=== PATIENT | female | born 1925 | race Caucasian/White ===

== ENCOUNTER 2016-05-20 08:33 | Emergency (ER) | payer OTHER, MEDICAID ==
[~2016-05-20] VITALS: Ht 152.4 cm; Wt 53.1 kg
[2016-05-20 08:33] VITALS: BP_SYST 206
[~2016-05-20 08:33] MED LIST: LISI40TA4 PO; LOVA10TA55 PO; VERA180T7 PO
--- NOTE | 2016-05-20 08:54 | NUR ---
ER at bedside examining patient.
--- NOTE | 2016-05-20 08:56 | NUR ---
Patient awake in bed, stable condition, alert and oriented x4. States has had upper abdominal pain that extends to ribs and wraps around back since yesterday after picking up her dpg (appx 15lbs). Denies any injury to body, denies fall. No deformities noted, no injuries noted. Patient states pain worsens with inspiration. No respiratory distress noted. No other complaints/injuries per patient or noted. Addendum: 05/20/16 at 0937 by FADUMO dog
--- NOTE | 2016-05-20 08:58 | NUR ---
Dr. Crow at bedside
--- NOTE | 2016-05-20 08:59 | NUR ---
Dr. Crow aware of blood pressure.
--- NOTE | 2016-05-20 09:20 | NUR ---
Blood pressure recheck: 179/117. Dr. Crow aware, placing medication order.
[2016-05-20] MEDS ORDERED: METOPROLOL TARTRATE 5 MG/5 ML VIAL IVP ONE (09:30)
[2016-05-20 09:35] LABS: BASOPHILS % (AUTO) 0.6 % (0.0-2.0); EOSINOPHILS # (AUTO) 0.1 K/uL (0.0-0.4); EOSINOPHILS % (AUTO) 1.6 % (0.0-4.0); HEMATOCRIT 39.2 % (36-48); HEMOGLOBIN 13.1 g/dL (12.0-16.0); LYMPHOCYTES % (AUTO) 16.8 % (20.5-51.5); MEAN CORPUSCULAR HEMOGLOBIN 27 pg (27-31); MEAN CORPUSCULAR HGB CONC 33 % (32-36); MEAN CORPUSCULAR VOLUME 82 fL (79.0-98.0); MONOCYTES # (AUTO) 0.5 K/uL (0.0-1.0); NEUTROPHILS # (AUTO) 4.1 K/uL (1.8-7.7); PLATELET COUNT (AUTO) 274 K/uL (130-430); RED CELL DISTRIBUTION WIDTH 13.7 % (9.0-15.0); WHITE BLOOD COUNT (AUTO) 5.7 K/uL (4.8-10.8)
[2016-05-20 09:42] LABS: ANION GAP 3 (5-15); CALCIUM 8.6 mg/dL (8.4-11.0); CHLORIDE 107 mmol/L (98-107); GLUCOSE 95 mg/dL (70-99); POTASSIUM 3.5 mmol/L (3.5-5.1); SODIUM SERUM 139 mmol/L (136-145); UREA NITROGEN, BLOOD 8 mg/dL (8-21)
[2016-05-20 09:44] LABS: BILIRUBIN,URINE NEGATIVE (NEGATIVE); BLOOD, URINE TRACE (NEGATIVE); CLARITY/URINE CLEAR (CLEAR); COLOR,URINE YELLOW (YELLOW); GLUCOSE,URINE NEGATIVE (NEGATIVE); KETONES,URINE NEGATIVE (NEGATIVE); LEUKOCYTE ESTERASE ,URINE NEGATIVE (NEGATIVE); NITRITE, URINE NEGATIVE (NEGATIVE); PH,URINE 8.5 (5.0-8.0); PROTEIN URINE TRACE (NEGATIVE); UROBILINOGEN,URINE 0.2 (0.2-1.0)
[2016-05-20 09:44] LABS: INR 0.9 (0.8-1.2); PROTHROMBIN TIME 10.3 SECS (9.5-12.5)
[2016-05-20 09:46] LABS: ALANINE AMINOTRANSFERASE 22 U/L (12-78); ALBUMIN 3.5 g/dL (3.4-4.8); ASPARTATE AMINOTRANSFERASE 18 U/L (10-37); CHOLESTEROL 178 mg/dL (<200); HDL CHOLESTEROL 86 mg/dL (>55); LDL CHOLESTEROL 79 mg/dL (<100); LIPASE 140 U/L (73-393); TOTAL BILIRUBIN 0.6 mg/dL (0.0-1.0); TRIGLYCERIDES 52 mg/dL (30-150)
--- NOTE | 2016-05-20 10:00 | NUR ---
Dr. Crow aware that blood pressure remains elevated, no orders received.
[2016-05-20 10:08] LABS: BACTERIA,URINE RARE /HPF (None Seen); MUCUS,URINE 1+ /LPF (None Seen); RBC,URINE 0-3 /HPF (0-3); WBC,URINE 0-3 /HPF (0-3)
--- NOTE | 2016-05-20 11:00 | NUR ---
Dr. Crow stated does not want to administer any blood pressure medication at this time due to chronic history of hypertension and chance of blood pressure dropping too low. Monitoring closely.
--- NOTE | 2016-05-20 11:04 | NUR ---
Patient in stable condition, no distress noted. Denies headache. Addendum: 05/20/16 at 1104 by FADUMO denies dizziness
--- NOTE | 2016-05-20 12:00 | NUR ---
Patient ambulatory from room to restroom with steady gait without assist but patient states she is still having pain when walking. Dr russell aware.
--- NOTE | 2016-05-20 12:15 | NUR ---
Patient to radiology via [facility]
--- NOTE | 2016-05-20 12:35 | NUR ---
called dietary for 2G NA meal tray, Dr russell aware
--- NOTE | 2016-05-20 12:38 | NUR ---
meal tray at bedside
[2016-05-20] MEDS ORDERED: cloNIDine HCL 0.1 MG TABLET PO ONE (12:45)
[2016-05-20] MEDS ORDERED: IBUPROFEN 600 MG TABLET PO ONE (12:45)
[2016-05-20] MEDS ORDERED: VITAMIN D PO (12:59)
--- NOTE | 2016-05-20 12:59 | NUR ---
Medication reconciliation completed with information provided by PATIENT. Any prior medication reconciliation on file was reviewed and corrected. PATIENT STATES PREVIOUS MED REC HAS BEEN THE SAME AND DOSES HAVE NOT CHANGED THE WHOLE TIME WHILE TAKING THE MEDICATIONS
[2016-05-20] MEDS ORDERED: MORPHINE 2 MG/ML INJ. SYRINGE ONE (14:01)
--- NOTE | 2016-05-20 15:00 | NUR ---
Patient in stable condition, no distress noted
--- NOTE | 2016-05-20 16:45 | NUR ---
Kirti Release Engineer came to speak to patient regarding SNF placement for safety
--- NOTE | 2016-05-20 16:52 | NUR ---
Iris from HCP verbalizes that the patient has been accepted at [facility] rm 203b. Report call be called to [phone] to [facility]. Transportation will be provided by [employer], ETA [phone].
--- NOTE | 2016-05-20 16:58 | NUR ---
Social Service Note: PERCUSSION INSTRUMENT REPAIRER was called to ED to meet with pt to discuss her DC plan. Pt states that she lives alone; pt at had fall at home. Pt states that she does not want to go to a SNF. Pt has been accepted to a SNF under pt's insurance. Pt asked for PERCUSSION INSTRUMENT REPAIRER to attempt to contact pt's friend-Marcia ([phone]); PERCUSSION INSTRUMENT REPAIRER placed several calls and voice messages. PERCUSSION INSTRUMENT REPAIRER did speak to Marcia who stated that she was out of town and unable to assist the pt at this time. Marcia stated to call Elastera who handles pt's finances. PERCUSSION INSTRUMENT REPAIRER attempted to call Elastera ([phone]); the number is disconnected. PERCUSSION INSTRUMENT REPAIRER met with pt again at bedside; PERCUSSION INSTRUMENT REPAIRER spoke with pt about the importance of going to the SNF for rehab to get stronger before returning home. Pt stated that she was agreeable to short term SNF placement. PERCUSSION INSTRUMENT REPAIRER will follow up as needed.
--- NOTE | 2016-05-20 17:01 | NUR ---
Patient resting in bed, stable condition
--- NOTE | 2016-05-20 18:18 | NUR ---
pt called for 2G sodium meal tray
--- NOTE | 2016-05-20 18:44 | NUR ---
Report given to Tanna at [facility]. All questions answered. Given ETA of 1900.
--- NOTE | 2016-05-20 19:05 | NUR ---
Called dietary for 2 gram sodium food.
--- NOTE | 2016-05-20 19:07 | NUR ---
Care endorsed to Chikis HUDSON, patient in stable condition.
[2016-05-20 20:20] VITALS: BP_SYST 172
--- NOTE | 2016-05-20 20:20 | NUR ---
Patient to be transferred to [place]. Is being transferred due to higher level of care. Receiving facility has accepting physician and available space. ER physician has signed transfer form. Patient or responsible libertarian has agreed to transfer and signed form. Patient belongings inventoried and will be sent with patient. Copy of nursing notes, lab reports, EKG, Physicians Orders and X-rays to be sent with patient. Report called to at receiving facility. . ambulance service has been called for transfer. ETA is 30 minutes.
--- NOTE | 2016-05-21 09:54 | NUR ---
Case mgt: Received voicemail from Gabbi Hudson, who said she had received call from case manager specialist Renetta-? HCP cm?, regarding pt and to please call her back. I called the #[phone]--just rang--no voicemail. Gabbi called our dc interstate planner Marisol, who gave her Renetta # from HCP-- RN
== END 2016-05-20 20:20 | disposition short-term general hospital (02) ==
LOC: SED 08:33
DX: M54.9 Dorsalgia, unspecified (principal); R10.9 Unspecified abdominal pain; I10 Essential (primary) hypertension
CPT/HCPCS: 36415; 71010; 72100; 74176; 80053; 80061; 81000; 83690; 83880; 84484; 85025; 85379; 85610; 85730; 93005; 96374; 99285; J2270; J3490

== ENCOUNTER 2016-06-03 21:11 | Emergency (ER) | payer OTHER, MEDICAID ==
[~2016-06-03] VITALS: Ht 154.9 cm; Wt 54.4 kg
[~2016-06-03 21:11] MED LIST changes: +HYDR12.55 PO; +LEVASTATIN PO; +LISI-209 PO; +VERAPAMIL PO; +VITAMIN D PO
[2016-06-03 21:22] VITALS: BP 157/71; PULSE 80; RESP 18; TEMP 97.8; O2SAT 98
--- NOTE | 2016-06-03 21:42 | NUR ---
Placed in room 03 . Placed on print controller, blood pressure machine and pulse oximeter. To gown for exam. Side rails up. Report given to TRISTAN Hall.
--- NOTE | 2016-06-03 21:54 | NUR ---
Patient to ER C/O LUQ abdominal pain 7/10 worse this evening. Patient states that she has been taking tramadol for body pain also C/O mild constipation. Denies nausea, afebrile. AAOx4, unlabored breathing, no signs of acute distress.
[2016-06-03] MEDS ORDERED: NACL 0.9% 1,000 ML IV ONE (21:55)
--- NOTE | 2016-06-03 21:57 | NUR ---
ER at bedside examining patient.
[2016-06-03] MEDS ORDERED: ASPIRIN 81 MG TAB.CHEW PO ONE (22:00)
[2016-06-03] MEDS ORDERED: MORPHINE 2 MG/ML INJ. SYRINGE IVP ONE (22:00)
--- NOTE | 2016-06-03 22:25 | NUR ---
# 22 gauge angiocath placed to left forearm. Use of asceptic technique. Opsite placed over site. Blood return noted. Flushed with 10 cc of normal saline. No evidence of infiltration noted. Patient tolerated well.
[2016-06-03 22:30] LABS: ANION GAP 3 (5-15); CALCIUM 8.9 mg/dL (8.4-11.0); CHLORIDE 103 mmol/L (98-107); CREATININE 0.83 mg/dL (0.55-1.30); GLUCOSE 109 mg/dL (70-99); POTASSIUM 3.7 mmol/L (3.5-5.1); SODIUM SERUM 134 mmol/L (136-145); UREA NITROGEN, BLOOD 7 mg/dL (8-21)
[2016-06-03 22:35] LABS: ALANINE AMINOTRANSFERASE 19 U/L (12-78); ALBUMIN 3.4 g/dL (3.4-4.8); AMYLASE 63 U/L (0-100); ASPARTATE AMINOTRANSFERASE 17 U/L (10-37); CREATINE KINASE, TOTAL 65 U/L (26-192); LIPASE 199 U/L (73-393); TOTAL BILIRUBIN 0.3 mg/dL (0.0-1.0); TOTAL PROTEIN, SERUM 6.9 g/dL (6.4-8.3)
[2016-06-03 22:36] LABS: PROTHROMBIN TIME 10.8 SECS (9.5-12.5)
[2016-06-03 22:39] LABS: BASOPHILS # (AUTO) 0.2 K/uL (0.0-0.2); BASOPHILS % (AUTO) 2.6 % (0.0-2.0); EOSINOPHILS # (AUTO) 0.1 K/uL (0.0-0.4); HEMATOCRIT 34.6 % (36-48); HEMOGLOBIN 11.6 g/dL (12.0-16.0); LYMPHOCYTES # (AUTO) 1.4 K/uL (1.0-5.5); LYMPHOCYTES % (AUTO) 19.3 % (20.5-51.5); MEAN CORPUSCULAR HEMOGLOBIN 27 pg (27-31); MEAN CORPUSCULAR HGB CONC 33 % (32-36); MEAN CORPUSCULAR VOLUME 80 fL (79.0-98.0); MONOCYTES # (AUTO) 0.7 K/uL (0.0-1.0); MONOCYTES % (AUTO) 9.8 % (1.7-9.3); NEUTROPHILS # (AUTO) 4.8 K/uL (1.8-7.7); NEUTROPHILS % (AUTO) 66.3 % (40.0-70.0); PLATELET COUNT (AUTO) 361 K/uL (130-430); RED BLOOD CELL COUNT(AUTO) 4.31 MIL/uL (4.2-6.2); RED CELL DISTRIBUTION WIDTH 13.8 % (9.0-15.0); WHITE BLOOD COUNT (AUTO) 7.2 K/uL (4.8-10.8)
--- NOTE | 2016-06-03 22:58 | NUR ---
Patient states that she feels much better. Denies pain. ER MD Olmstead aware
[2016-06-03 23:30] VITALS: BP 124/72; PULSE 75; RESP 18; TEMP 97.8; O2SAT 98
[2016-06-03 23:30] LABS: BILIRUBIN,URINE NEGATIVE (NEGATIVE); BLOOD, URINE NEGATIVE (NEGATIVE); CLARITY/URINE CLEAR (CLEAR); COLOR,URINE YELLOW (YELLOW); GLUCOSE,URINE NEGATIVE (NEGATIVE); KETONES,URINE NEGATIVE (NEGATIVE); LEUKOCYTE ESTERASE ,URINE NEGATIVE (NEGATIVE); NITRITE, URINE NEGATIVE (NEGATIVE); PROTEIN URINE NEGATIVE (NEGATIVE); UROBILINOGEN,URINE 0.2 (0.2-1.0)
--- NOTE | 2016-06-03 23:30 | NUR ---
Patient given written and verbal discharge instructions and verbalizes understanding. ER MD Olmstead discussed with patient the results and treatment provided. Patient in stable condition. ID arm band removed. IV catheter removed intact and dressing applied, no active bleeding. Rx of colace given. Patient educated on pain management and to follow up with PMD. Pain Scale 0/10. Opportunity for questions provided and answered.
== END 2016-06-03 23:30 | disposition home or self-care (01) ==
LOC: SED 21:11
DX: K59.00 Constipation, unspecified (principal); I10 Essential (primary) hypertension
CPT/HCPCS: 36415; 71010; 74176; 80053; 81003; 82150; 82550; 83690; 84484; 85025; 85610; 85730; 93005; 96361; 96374; 99285; J2270; J7030

== ENCOUNTER 2016-06-06 18:54 | Emergency (ER) | payer OTHER, MEDICAID ==
[~2016-06-06] VITALS: Ht 152.4 cm; Wt 53.1 kg
[2016-06-06 18:54] VITALS: BP_SYST 165
[~2016-06-06 18:54] MED LIST changes: -HYDR12.55 PO; -LEVASTATIN PO; -LISI-209 PO; -VERAPAMIL PO
[2016-06-06] MEDS ORDERED: NACL 0.9% 250 ML IV ONE (20:15)
[2016-06-06 20:34] LABS: BASOPHILS # (AUTO) 0.1 K/uL (0.0-0.2); BASOPHILS % (AUTO) 0.8 % (0.0-2.0); EOSINOPHILS # (AUTO) 0.1 K/uL (0.0-0.4); EOSINOPHILS % (AUTO) 1.4 % (0.0-4.0); HEMATOCRIT 34.4 % (36-48); HEMOGLOBIN 11.3 g/dL (12.0-16.0); LYMPHOCYTES # (AUTO) 1.6 K/uL (1.0-5.5); LYMPHOCYTES % (AUTO) 23.7 % (20.5-51.5); MEAN CORPUSCULAR HEMOGLOBIN 27 pg (27-31); MEAN CORPUSCULAR HGB CONC 33 % (32-36); MEAN CORPUSCULAR VOLUME 82 fL (79.0-98.0); MONOCYTES # (AUTO) 0.5 K/uL (0.0-1.0); MONOCYTES % (AUTO) 7.6 % (1.7-9.3); NEUTROPHILS # (AUTO) 4.6 K/uL (1.8-7.7); NEUTROPHILS % (AUTO) 66.5 % (40.0-70.0); PLATELET COUNT (AUTO) 362 K/uL (130-430); RED BLOOD CELL COUNT(AUTO) 4.21 MIL/uL (4.2-6.2); RED CELL DISTRIBUTION WIDTH 13.9 % (9.0-15.0); WHITE BLOOD COUNT (AUTO) 6.9 K/uL (4.8-10.8)
[2016-06-06 20:38] LABS: ANION GAP 7 (5-15); CALCIUM 8.1 mg/dL (8.4-11.0); CHLORIDE 107 mmol/L (98-107); CREATININE 0.76 mg/dL (0.55-1.30); GLUCOSE 94 mg/dL (70-99); POTASSIUM 3.4 mmol/L (3.5-5.1); SODIUM SERUM 138 mmol/L (136-145); UREA NITROGEN, BLOOD 6 mg/dL (8-21)
[2016-06-06 20:43] LABS: ALANINE AMINOTRANSFERASE 17 U/L (12-78); ALBUMIN 3.1 g/dL (3.4-4.8); ASPARTATE AMINOTRANSFERASE 15 U/L (10-37); TOTAL BILIRUBIN 0.5 mg/dL (0.0-1.0); TOTAL PROTEIN, SERUM 6.2 g/dL (6.4-8.3)
[2016-06-06] MEDS ORDERED: MAGNESIUM CITRATE 300 ML ORAL SOLUTION PO ONE (21:30)
[2016-06-06 21:40] VITALS: BP_SYST 135
== END 2016-06-06 21:40 | disposition home or self-care (01) ==
LOC: SED 18:54
DX: K59.00 Constipation, unspecified (principal); I10 Essential (primary) hypertension; Z90.710 Acquired absence of both cervix and uterus
CPT/HCPCS: 36415; 74000; 76700; 80053; 85025; 85730; 99285; J7050